=== PATIENT | female | born 1950 | race Caucasian/White ===

== ENCOUNTER 2016-05-11 06:47 | Day surgery (SDC) | payer BC ==
[2016-05-07 12:25] LABS: BASOPHILS 0.4 %; BASOPHILS ABSOLUTE 0.03 10/3/uL (0.0-0.16); EOSINOPHILS 2.6 %; EOSINOPHILS ABSOLUTE 0.19 10/3/uL (0.0-0.53); HEMATOCRIT 38.9 % (36.0-48.0); HEMOGLOBIN 12.5 g/dL (12.0-16.0); IMMATURE GRANULOCYTES 0.4 %; IMMATURE GRANULOCYTES ABSOLUTE 0.03 10/3/uL (0.0-0.11); LYMPHOCYTES 15.3 %; MEAN CORPUS HGB CONC 32.1 g/dL (32.0-36.0); MEAN CORPUSCULAR HEMOGLOB 31.6 pg (26.0-34.0); MEAN PLATELET VOLUME 9.2 fL (9.2-13.0); MONOCYTES 8.8 %; MONOCYTES ABSOLUTE 0.63 10/3/uL (0.21-1.20); NEUTROPHILS 72.5 %; NEUTROPHILS ABSOLUTE 5.22 10/3/uL (2.02-8.40); PLATELET COUNT 282 10/3/uL (150-400); RBC DISTRIBUTION WIDTH 13.8 % (12.0-16.0); RED CELL COUNT 3.95 10/6/uL (4.0-5.6); WHITE BLOOD CELLS 7.2 10/3/uL (4.5-10.5)
[2016-05-07 12:26] LABS: MANUAL DIFF NO %; MEAN CORPUSCULAR VOLUME 98.5 fL (80-100)
[2016-05-07 12:34] LABS: A/G RATIO 1.5 (0.7-1.9); ALBUMIN 4.1 G/DL (3.5-5.0); ALKALINE PHOSPHATASE 90 U/L (45-117); BUN (BLOOD UREA NITROGEN) 15 MG/DL (6-23); CALCIUM, SERUM 9.1 MG/DL (8.5-10.4); CHLORIDE, SERUM 106 MMOL/L (96-112); CO2 (CARBON DIOXIDE) 28 MMOL/L (24-34); CREATININE 0.79 MG/DL (0.55-1.02); GFR AFRICAN AMERICAN 90 ML/MIN (>=60); GFR NON AFRICAN AMERICAN 78 ML/MIN (>=60); GLOBULIN 2.7 G/DL (2.5-4.1); GLUCOSE, SERUM 135 MG/DL (60-99); POTASSIUM, SERUM 4.1 MMOL/L (3.5-5.3); SGOT(AST) 13 U/L (5-40); SGPT(ALT) 27 U/L (5-65); SODIUM, SERUM 144 MMOL/L (135-148); TOTAL BILIRUBIN 0.7 MG/DL (0-1.2); TOTAL PROTEIN 6.8 G/DL (6.0-8.5)
--- NOTE | ~2016-05-11 | OP ---
Record Of Operation [facility] [address] [place]. [address] NAME: SUMIT BE JULY : 48 [place] [facility] [place] [id number] AGE: 65 ADM/REG DATE : 05/11/16 MR#: [id number] REPORT SERV DATE: 05/11/16 DICTATED BY: ROSEY ALLEN DATE: 05/11/16 REPORT STATUS : Draft TRANSCRIBED BY: MODL DATE: 05/11/16 DATE OF PROCEDURE: 05/11/2016 PREOPERATIVE DIAGNOSIS: Right breast triple negative breast cancer, status post neoadjuvant chemotherapy. POSTOPERATIVE DIAGNOSIS: Right breast triple negative breast cancer, status post neoadjuvant chemotherapy. PROCEDURES: 1. Right breast ultrasound guidance intraoperatively for tumor mapping. 2. Right breast segmentectomy. 3. Right axillary sentinel lymph node. 4. Removal of left chest wall port. INDICATION FOR THE PROCEDURE: Ms. Be is a healthy 65-year-old female, who had a 2.3 cm clinically node-negative, triple-negative, grade 3 invasive ductal cancer with a high growth rate. She underwent neoadjuvant chemotherapy with what appears to be a full clinical response. On ultrasound, I can still see a HydroMARK clip, but no obvious tumor. The patient had no clinically or ultrasound visual lymph nodes prior to chemotherapy and this remains the case. The medical oncologist has cleared us to take out the patient's port as well. She strongly motivated for breast preservation which is the plan. The patient will continue forward with whole breast radiation after healing. She had a lymphoscintigraphy scan earlier today showing good uptake in a single lymph node in the right axilla. OPERATIVE FINDINGS: After appropriate consent was noted on the chart, the patient was taken to the operating room in supine position. She was placed under general anesthesia without any complications. An ultrasound was utilized prior to prepping the chest wall to visualize the HydroMARK clip and this was marked on the skin for use in surgery. Additionally, the gamma probe was placed to the right axilla and good uptake noted. Methylene blue was not needed. The patient's bilateral chest wall were prepped and draped in sterile fashion. An incision was made over the marked spot on the skin of the breast. Dissection carried down to the breast parenchyma and a very generous segment taken as this was in fact a 2.5 cm tumor to start. There was no palpable tumor noted. This was sent for permanent pathology with marking sutures. The wound was copiously irrigated with warm saline. Hemostasis was achieved. Local anesthetic infiltrated in the skin and soft tissue and the incision closed in two layers of Monocryl. The right axillary sentinel node biopsy was performed in routine fashion. The gamma probe was utilized to find the area of highest uptake. An incision was made and a single lymph node excised. This lymph node had an ex vivo count of approximately 2500. Background count at that point was minimal and this lymph node was sent for immediate evaluation by pathology. The lymph node was noted to be normal. This wound was then irrigated with normal saline. Hemostasis was achieved and the incision closed in two layers of Monocryl. Meantime, the port was removed, the incision was opened with a #15 blade. Sharp dissection carried down to the port hub which was grasped and the catheter pulled from the vein. Pressure was held on the neck for approximately 5 minutes. Two stay sutures were clipped. The port removed and the stay sutures removed as well. The wound was irrigated Record Of Operation [address] [address] NAME: SUMIT BE JULY : 48 [place] [facility] [place] [id number] AGE: 65 ADM/REG DATE : 05/11/16 MR#: [id number] REPORT SERV DATE: 05/11/16 DICTATED BY: ROSEY ALLEN DATE: 05/11/16 REPORT STATUS : Draft TRANSCRIBED BY: NEENA DATE: 05/11/16 with normal saline and closed in two layers of Monocryl. Local anesthetic was instilled into all of these incisions prior to closing. The patient's skin was cleansed and dried. Dermabond overlaid. Once the Dermabond was dried, Telfa and Tegaderm were placed on the port site. Burn fluff and a binder placed on the patient's breast. The patient was awoken from anesthesia without complication, taken to the PACU in stable condition for recovery. All counts were correct at the end of the case. ESTIMATED BLOOD LOSS: 25 mL. COMPLICATIONS: None. SPECIMEN: 1. Right breast 6 o'clock segment. 2. Right axillary sentinel node x1. 3. Port which went to the trash. MARTY/NEENA Rosey Allen MD / [id number] CC: MD Quique Benoit M.D. [facility] Diego Seo MD
[~2016-05-11 06:47] MED LIST: AMB10 PO; COZ25 PO; EFFEXXR75 PO; FORTAMET500 MG PO; MELATONIN5 M1 PO; MULTIVIT/MIN PO; PROTONIX PO; SPIRO50 PO; VITAMIN D31000 UNIT PO; WELLXL150 PO; ZOCOR40 PO; [UNRECOGNIZED DRUG - OTHER] OT; [UNRECOGNIZED DRUG - OTHER] PO
== END 2016-05-11 13:05 | disposition home or self-care (01) ==
LOC: SDC 06:47
PROVIDERS: Surgery Surgical Oncology
PROC: 0JPT0XZ Removal of Tunneled Vascular Access Device from Trunk Subcutaneous Tissue and Fascia, Open Approach (ICD-10-PCS; 2016-05-11)
PROC: 07B50ZX Excision of Right Axillary Lymphatic, Open Approach, Diagnostic (ICD-10-PCS; principal; 2016-05-11 10:30)
PROC: 0HBT0ZZ Excision of Right Breast, Open Approach (ICD-10-PCS; 2016-05-11 10:30)
DX: C50.911 Malignant neoplasm of unspecified site of right female breast (principal); I10 Essential (primary) hypertension; G47.33 Obstructive sleep apnea (adult) (pediatric); K21.9 Gastro-esophageal reflux disease without esophagitis; E11.9 Type 2 diabetes mellitus without complications; E78.00 Pure hypercholesterolemia, unspecified; Z90.710 Acquired absence of both cervix and uterus; Z98.51 Tubal ligation status; Z98.890 Other specified postprocedural states; Z99.81 Dependence on supplemental oxygen; Z17.1 Estrogen receptor negative status [ER-]
CPT/HCPCS: 71020; 78195; 80053; 82962; 85025; 88307; 88333; 88342; 93005; A9541; J0690; J2250; J2370; J2405; J3010